=== PATIENT | female | born 1985 | race Caucasian/White ===

== ENCOUNTER → 2020-08-02 10:49 | Outpatient (CLI) | payer MEDICAID | END | disposition home or self-care (01) | LOC: D.NM 10:49 | PROVIDERS: ATTEND Internal Medicine Gastroenterology | DX: R10.84 Generalized abdominal pain (principal); R11.0 Nausea ==

== ENCOUNTER → 2020-08-09 10:12 | Outpatient (CLI) | payer OTHER | END | disposition home or self-care (01) | LOC: D.NM 10:00 | PROVIDERS: ATTEND Internal Medicine Gastroenterology | DX: R10.84 Generalized abdominal pain (principal); R11.0 Nausea ==